=== PATIENT | female | born 1960 | race Caucasian/White ===

== ENCOUNTER 2018-05-06 20:54 | Inpatient (IN) | payer OTHER ==
[2018-05-06] MEDS ORDERED: NACL 0.9% 3 ML SYG IV (21:30)
[2018-05-06] MEDS ORDERED: BISACODYL (EC) 5 MG TAB PO (21:30)
[2018-05-06] MEDS ORDERED: DOCUSATE SODIUM 100 MG CAP PO (21:30)
[2018-05-06] MEDS ORDERED: ACETAMINOPHEN 325 MG TAB PO (21:30)
[2018-05-06] MEDS ORDERED: ONDANSETRON 4 MG INJ IV (21:30)
[2018-05-06] MEDS: morphine 4 MG/ML VIAL IV (21:52)
[2018-05-06 22:21] LABS: ADD MAN DIFF? NO
[2018-05-06 22:23] LABS: WHITE BLOOD COUNT 6.6 10^3/ul (4.8-10.8)
[2018-05-06 22:23] LABS: BASOPHILS % 0.6 % (0.0-2.0); EOSINOPHILS # 0.2 10^3/ul (0.0-0.5); EOSINOPHILS % 2.4 % (0.0-7.0); HEMOGLOBIN 12.7 g/dl (12.0-16.0); LYMPHOCYTES # 2.1 10^3/ul (0.8-2.9); LYMPHOCYTES % 31.9 % (15.0-51.0); MEAN CORPUSCULAR HEMOGLOBIN 30.8 pg (29.0-33.0); MEAN CORPUSCULAR HGB CONC 33.4 g/dl (32.0-37.0); MEAN PLATELET VOLUME 10.3 fl (7.4-10.4); MONOCYTE # 0.7 10^3/ul (0.3-0.9); MONOCYTES % 10.4 % (0.0-11.0); NEUTROPHIL # 3.6 10^3/ul (1.6-7.5); NEUTROPHILS % 54.5 % (39.0-77.0); PLATELET COUNT 273 10^3/UL (140-415); RED BLOOD COUNT 4.13 10^6/ul (4.20-5.40); RED CELL DISTRIBUTION WIDTH 12.4 % (11.5-14.5)
[2018-05-06 22:41] LABS: ALANINE AMINOTRANSFERASE 15 IU/L (13-69); ALBUMIN 3.9 g/dl (3.3-4.9); ALBUMIN/GLOBULIN RATIO 1.21; ALKALINE PHOSPHATASE 56 IU/L (42-121); ANION GAP 10 (5-13); ASPARTATE AMINO TRANSFERASE 19 IU/L (15-46); BILIRUBIN,INDIRECT 0.3 mg/dl (0-1.1); BILIRUBIN,TOTAL 0.3 mg/dl (0.2-1.3); BLOOD UREA NITROGEN 16 mg/dl (7-20); CALCIUM 9.4 mg/dl (8.4-10.2); CARBON DIOXIDE 29 mmol/L (21-31); CHLORIDE 100 mmol/L (97-110); CREATININE 0.67 mg/dl (0.44-1.00); Estimated GFR > 60 mL/min (>60); GLUCOSE 171 mg/dl (70-220); POTASSIUM 3.8 mmol/L (3.5-5.1); SODIUM 139 mmol/L (135-144); TOTAL PROTEIN 7.1 g/dl (6.1-8.1)
[2018-05-06] MEDS ORDERED: morphine SULFATE/PF (2 MG/2 ML) SYG IV (23:00)
[2018-05-06] MEDS: KETOROLAC 15 MG INJ IV (23:20)
[2018-05-06 23:33] LABS: ERYTHROCYTE SEDIMENTATION RATE 40 mm/Hr (0-30)
[2018-05-07] MEDS: LINEZOLID 600 MG/D5W (PMX) 300 ML IVPB ×3 (00:38→20:46)
[2018-05-07] MEDS: PIPER-TAZO 3.375 GM IV (PMX) 100 ML IVPB ×5 (01:47→23:53)
[2018-05-07] MEDS: KETOROLAC 15 MG INJ IV ×4 (05:41→23:54)
[2018-05-07 06:19] LABS: ADD MAN DIFF? NO
[2018-05-07 06:22] LABS: WHITE BLOOD COUNT 6.3 10^3/ul (4.8-10.8)
[2018-05-07 06:22] LABS: BASOPHILS % 0.3 % (0.0-2.0); EOSINOPHILS # 0.1 10^3/ul (0.0-0.5); EOSINOPHILS % 2.2 % (0.0-7.0); HEMATOCRIT 35.5 % (37.0-47.0); HEMOGLOBIN 11.9 g/dl (12.0-16.0); LYMPHOCYTES # 1.8 10^3/ul (0.8-2.9); LYMPHOCYTES % 28.8 % (15.0-51.0); MEAN CORPUSCULAR HEMOGLOBIN 30.9 pg (29.0-33.0); MEAN CORPUSCULAR HGB CONC 33.5 g/dl (32.0-37.0); MEAN CORPUSCULAR VOLUME 92.2 fl (82.0-101.0); MEAN PLATELET VOLUME 10.6 fl (7.4-10.4); MONOCYTE # 0.7 10^3/ul (0.3-0.9); MONOCYTES % 10.4 % (0.0-11.0); NEUTROPHIL # 3.6 10^3/ul (1.6-7.5); PLATELET COUNT 258 10^3/UL (140-415); RED BLOOD COUNT 3.85 10^6/ul (4.20-5.40); RED CELL DISTRIBUTION WIDTH 12.5 % (11.5-14.5)
[2018-05-07 06:42] LABS: URIC ACID 5.5 mg/dl (3.1-7.9)
[2018-05-07 06:46] LABS: HEMOGLOBIN A1C 8.4 % (0-5.9)
[2018-05-07 06:47] LABS: ALANINE AMINOTRANSFERASE 14 IU/L (13-69); ALBUMIN 3.6 g/dl (3.3-4.9); ALKALINE PHOSPHATASE 50 IU/L (42-121); ANION GAP 9 (5-13); ASPARTATE AMINO TRANSFERASE 18 IU/L (15-46); BILIRUBIN,INDIRECT 0.3 mg/dl (0-1.1); BILIRUBIN,TOTAL 0.3 mg/dl (0.2-1.3); BLOOD UREA NITROGEN 18 mg/dl (7-20); CALCIUM 9.4 mg/dl (8.4-10.2); CARBON DIOXIDE 29 mmol/L (21-31); CHLORIDE 101 mmol/L (97-110); CHOL/HDL RATIO 9.3 RATIO; CHOLESTEROL 233 mg/dl (100-200); Estimated GFR > 60 mL/min (>60); GLUCOSE 211 mg/dl (70-220); HDL CHOLESTEROL 25 mg/dl (37-92); LDL CHOLESTEROL,CALCULATED 148 mg/dl; MAGNESIUM 1.8 mg/dl (1.7-2.5); POTASSIUM 3.9 mmol/L (3.5-5.1); SODIUM 139 mmol/L (135-144); TOTAL PROTEIN 6.6 g/dl (6.1-8.1); TRIGLYCERIDES 299 mg/dl (0-149)
[2018-05-07 07:36] LABS: THYROID STIMULATING HORMONE 0.901 MIU/L (0.465-4.680)
[2018-05-07] MEDS: HYDROCODONE/APAP (5/325) TAB PO (15:40)
[2018-05-07] MEDS ORDERED: morphine LIQ (10 MG/5 ML) CUP PO (17:30)
[2018-05-07 21:50] LABS: RHEUMATOID FACTOR NEGATIVE (NEGATIVE)
[2018-05-08] MEDS: PIPER-TAZO 3.375 GM IV (PMX) 100 ML IVPB ×2 (06:06→11:23)
[2018-05-08] MEDS: KETOROLAC 15 MG INJ IV ×2 (06:06→11:00)
[2018-05-08] MEDS ORDERED: BETAMET NA PHOS/AC(6 MG/ML) 5ML INJ INJ (09:00)
[2018-05-08] MEDS ORDERED: BUPIVACAINE 0.5%/EPI (SDV) 30 ML INJ INJ (09:00)
[2018-05-08] MEDS: LINEZOLID 600 MG/D5W (PMX) 300 ML IVPB (09:16)
[2018-05-08 13:11] LABS: ANA SCREEN NEGATIVE (NEGATIVE)
[2018-05-08] MEDS: INFLUENZA VIRUS VACCINE 0.5 ML (DISPENSING) IM* (13:17)
== END 2018-05-08 14:00 | disposition home or self-care (01) | DRG 558 ==
LOC: PP2 20:54
PROC: 3E0U33Z Introduction of Anti-inflammatory into Joints, Percutaneous Approach (ICD-10-PCS; principal; 2018-05-08)
PROC: 3E0U3BZ Introduction of Anesthetic Agent into Joints, Percutaneous Approach (ICD-10-PCS; 2018-05-08)
DX: M65.222 Calcific tendinitis, left upper arm (principal); E11.9 Type 2 diabetes mellitus without complications; E66.9 Obesity, unspecified; Z68.35 Body mass index [BMI] 35.0-35.9, adult; Z79.84 Long term (current) use of oral hypoglycemic drugs; Z79.1 Long term (current) use of non-steroidal anti-inflammatories (NSAID); Z79.82 Long term (current) use of aspirin
CPT/HCPCS: 73080-LT; 73221; 80053; 80061; 83036; 83735; 84443; 84560; 85025; 85651; 86038; 86430; 87040; 87081; 90686

== ENCOUNTER 2018-08-05 13:55 | Day surgery (SDC) | payer OTHER ==
[2018-08-05] MEDS ORDERED: LIDOCAINE 100 MG SYRINGE (15:31)
[2018-08-05] MEDS ORDERED: PROPOFOL 40 ML (15:31)
[2018-08-05] MEDS ORDERED: IPRATROPIUM (NEB) 0.5 MG/2.5 ML AMP HHN (16:00)
[2018-08-05] MEDS ORDERED: TRIMETHOBENZAMIDE 100 MG/ML VIAL IM (16:00)
[2018-08-05] MEDS ORDERED: EPHEDrine SULFATE 50 MG/5 ML SYG IV (16:00)
[2018-08-05] MEDS ORDERED: OXYCODONE/ACETAMINOPHEN (5/325) TAB PO ×2 (16:00)
[2018-08-05] MEDS ORDERED: FENTAnyl 50 MCG/ML VIAL IV ×3 (16:00)
[2018-08-05] MEDS ORDERED: ALBUTEROL 0.083% (NEB) 2.5 MG/3 ML AMP HHN (16:00)
[2018-08-05] MEDS ORDERED: HYDROmorphONE 1 MG/5 ML IV SYRINGE IV ×3 (16:00)
[2018-08-05] MEDS ORDERED: LABETALOL HCL 20MG INJ IV (16:00)
[2018-08-05] MEDS ORDERED: DIPHENHYDRAMINE 50 MG INJ IV (16:00)
[2018-08-05] MEDS ORDERED: hydrALAzine 20 MG INJ IV (16:00)
[2018-08-05] MEDS ORDERED: MEPERIDINE 25 MG INJ IV (16:00)
[2018-08-05] MEDS ORDERED: ONDANSETRON 4 MG INJ IV (16:00)
[2018-08-05] MEDS ORDERED: MIDAZOLAM 1 MG/ML 2 ML INJ IV (16:00)
== END 2018-08-05 17:09 | disposition home or self-care (01) ==
LOC: GIL 13:55
DX: Z12.11 Encounter for screening for malignant neoplasm of colon (principal); K64.8 Other hemorrhoids; E11.9 Type 2 diabetes mellitus without complications; Z79.84 Long term (current) use of oral hypoglycemic drugs; I10 Essential (primary) hypertension
CPT/HCPCS: 45378; 82962